=== PATIENT | female | born 1940 | race Caucasian/White ===

== ENCOUNTER 2016-08-30 20:04 | Inpatient (IN) | payer MEDICARE, MEDICAID ==
[~2016-08-30] VITALS: Ht 154.9 cm; Wt 65.8 kg
[2016-08-30 20:55] LABS: MEAN CORPUSCULAR HEMOGLOBIN 29.1 PG (27.0-31.0); MEAN CORPUSCULAR HGB CONC 33.1 G/DL (32.0-36.0); MEAN CORPUSCULAR VOLUME 88 FL (80-99); MEAN PLATELET VOLUME 6.1 FL (6.5-10.1); PLATELET COUNT 221 K/UL (150-450); RED BLOOD COUNT 4.88 M/UL (4.20-5.40); RED CELL DISTRIBUTION WIDTH 11.8 % (11.6-14.8); WHITE BLOOD COUNT 9.1 K/UL (4.8-10.8)
[2016-08-30 21:11] LABS: TROPONIN I < 0.30 ng/mL (<=0.30)
[2016-08-30 21:12] LABS: ALANINE AMINOTRANSFERASE 20 U/L (3-33); ALBUMIN/GLOBULIN RATIO 1.5 (1.0-2.7); ANION GAP 17 (5-15); ASPARTATE AMINO TRANSFERASE 21 U/L (5-40); CALCIUM 10.1 mg/dL (8.6-10.2); CARBON DIOXIDE 23 mEQ/L (20-30); CHLORIDE 98 mEQ/L (98-107); HEMOLYSIS 15; POTASSIUM 4.2 mEQ/L (3.4-4.9); SODIUM 138 mEQ/L (135-145); TOTAL PROTEIN 7.5 g/dL (6.6-8.7)
[2016-08-30 21:17] VITALS: BP 108/67
[2016-08-30 21:22] LABS: CKMB < 1.5 ng/mL (< 3.8)
[2016-08-30] MEDS ORDERED: Zosyn 4.5gm inj ONE (21:23)
[2016-08-30] MEDS ORDERED: Vancomycin 1gm inj IVPB ONE (21:23)
--- NOTE | 2016-08-30 21:39 | Emergency Room Report ---
History of Present Illness General Chief Complaint: Fever Source: Patient Present Illness HPI 76 YO F with 5 days fever/chills, non productive cough, nausea with eating. Denies chest pain, SOB, abd pain, vomiting, diarrhea, sick contacts. Previous smoker. Denies known asthma, COPD. Allergies: Coded Allergies: ACETAMINOPHEN (Unverified Allergy, Unknown, 08/30/16) CODEINE (Unverified Allergy, Unknown, 08/30/16) HYDROCODONE (Unverified Allergy, Unknown, 08/30/16) PENICILLINS (Unverified Allergy, Unknown, 08/30/16) Patient History Past Medical History: HTN Past Surgical History: none Pertinent Family History: none Social History: Reports: smoking Now: No Immunizations: UTD Reviewed Nursing Documentation: PMH: Agreed, PSxH: Agreed Nursing Documentation-PMH Past Medical History: No History, Except For Hx Hypertension: Yes Review of Systems All Other Systems: negative except mentioned in HPI Physical Exam Vital Signs Date Time Temp Pulse Resp B/P Pulse Ox O2 Delivery O2 Flow Rate FiO2 08/30/16 20:04 100.6 89 20 105/67 94 Room Air Sp02 EP Interpretation: reviewed, normal General Appearance: normal inspection, well appearing, no apparent distress, alert, GCS 15, non-toxic Head: normocephalic, atraumatic Eyes: bilateral eye EOMI, bilateral eye PERRL ENT: normal ENT inspection, hearing grossly normal, normal voice Neck: normal inspection, full range of motion, supple, no bony tend Respiratory: normal inspection, normal breath sounds, no respiratory distress, no retraction, no wheezing, crackles Cardiovascular #1: regular rate, rhythm, no edema Gastrointestinal: normal inspection, normal bowel sounds, non tender, soft, no guarding, no hernia Musculoskeletal: normal inspection, back normal, normal range of motion, Rajesh' s Sign negative Neurologic: normal inspection, alert, oriented x3, responsive, service clerk 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 I attest that this information is true, accurate and complete to the best of my knowledge. I understand that any falsification, omission, or concealment of material fact may subject me to administrative, civil, or criminal liability. This patient warrants hospital admission for extreme of age and has a condition that cannot be treated as outpatient. Diagnostic Impression: Primary Impression: Fever Qualified Codes: R50.9 - Fever, unspecified Additional Impression: Cough ER Course 76 YO F with fever/chills and cough. VS here normal. Afebrile. DDx include sepsis, PNA, urosepsis, bronchitis Labs: No leuks. H&H stable. Tx empirically for PNA with vanc/zosyn Afebrile here and Allergy to Tylenol so was not given Endorsed to Dr Lu at 937pm EKG Diagnostic Results Rate: normal Rhythm: NSR ST Segments: no acute changes ASA given to the pt in ED: No Rhythm Strip Diag. Results EP Interpretation: yes Rate: 85 Rhythm: NSR, no PVC's, no ectopy Chest X-Ray Diagnostic Results EP Interpretation: Yes Findings: no consolidation, no effusion, no pneumothorax, no acute cardiopulmonary disease Number of Views: 1 Reevaluation Time: 21:36 Last Vital Signs Date Time Temp Pulse Resp B/P Pulse Ox O2 Delivery O2 Flow Rate FiO2 08/30/16 21:17 99.6 82 28 108/67 94 Room Air Status: improved Disposition: ADMITTED INPATIENT Condition: Serious Referrals: ZION LU (PCP) BRIDGET SANTOYO M.D. Aug 30, 2016 21:39
[2016-08-30 21:40] LABS: LYMPHOCYTES % (MANUAL) 7 % (20-45); NEUTROPHILS % (MANUAL) 88 % (45-75); TOTAL CELLS COUNTED 100
[2016-08-30 21:41] LABS: BAND NEUTROPHILS % (MANUAL) 0 % (0-8); BASOPHILS % (MANUAL) 0 % (0-2); EOSINOPHILS % (MANUAL) 0 % (0-3); PLATELET ESTIMATE ADEQUATE; PLATELET MORPHOLOGY NORMAL
[2016-08-30] MEDS ORDERED: Milk of Magnesia 30ml Ud ORAL PRN (21:45)
[2016-08-30] MEDS ORDERED: Zolpidem 5mg tab ORAL PRN (21:45)
[2016-08-30 21:55] LABS: APPEARANCE,URINE CLEAR; KETONES,URINE NEGATIVE (NEGATIVE); LEUKOCYTE ESTERASE ,URINE 2+ (NEGATIVE); NITRITE,URINE NEGATIVE (NEGATIVE); PH,URINE 5 (4.5-8.0); PROTEIN,URINE NEGATIVE (NEGATIVE); UROBILINOGEN,URINE NORMAL MG/DL (0.0-1.0)
[2016-08-30 21:59] LABS: BACTERIA,URINE FEW /HPF; RBC,URINE 0-2 /HPF (0 - 2); SQUAMOUS EPITHELIAL CELL,UR FEW /LPF (NONE/OCC)
[2016-08-30] MEDS ORDERED: LEVOTHYROXINE125 MCG ORAL (22:17)
[2016-08-30] MEDS ORDERED: NORVASC10 MG ORAL (22:17)
[2016-08-30] MEDS ORDERED: KLONOPIN0.5 MG ORAL (22:17)
[2016-08-30] MEDS ORDERED: CELEXA20 MG ORAL (22:17)
[2016-08-30] MEDS ORDERED: TRAZODONE HCL150 MG ORAL (22:17)
[2016-08-30] MEDS ORDERED: PROPRANOLOL HCL20 MG ORAL (22:17)
[2016-08-30 22:47] VITALS: BP 143/102
[2016-08-31] VITALS (7 sets, daily range): BP systolic 102–135; BP diastolic 60–80
[2016-08-31] MEDS: traMADol 50mg tab ORAL PRN ×2 (01:56→18:24)
[2016-08-31] MEDS ORDERED: Zosyn 4.5gm inj ONE (03:25)
[2016-08-31] MEDS ORDERED: cefTRIAXone 1 GM in D5W 50 ML IVPB SCH (05:00)
[2016-08-31] MEDS: Azithromycin 250mg tab ORAL SCH (08:43)
[2016-08-31] MEDS: Heparin 5000 units/ml inj SUBQ SCH ×2 (08:49→21:29)
--- NOTE | 2016-08-31 10:16 | Diagnostic Imaging Report ---
Indication: Chest pain Technique: One view of the chest Comparison: none Findings: Lungs and pleural spaces are clear. There is mild central bronchial wall thickening. The heart size is normal Impression: No acute process This agrees with the preliminary interpretation provided by the emergency room physician
[2016-08-31] MEDS ORDERED: PROTONIX40 MG ORAL (10:17)
[2016-08-31] MEDS ORDERED: POLYETHYLENE GL17 GM ORAL (10:17)
[2016-08-31] MEDS ORDERED: ARIPIPRAZOLE10 MG PO (10:17)
[2016-08-31] MEDS ORDERED: GEMFIBROZIL600 MG ORAL (10:17)
[2016-08-31] MEDS ORDERED: HYDROXYZINE HCL10 M1 PO (10:17)
[2016-08-31] MEDS ORDERED: PROMETHAZINE-D118 ML ORAL (10:17)
[2016-08-31] MEDS ORDERED: Miralax 17gm pkt ORAL PRN (10:30)
[2016-08-31] MEDS ORDERED: HydrOXYzine 25mg tab ORAL PRN (10:30)
[2016-08-31] MEDS: ARIPiprazole 10mg tab ORAL SCH (10:53)
--- NOTE | 2016-08-31 11:08 | History and Physical Report ---
DATE OF ADMISSION: 08/30/2016 CHIEF COMPLAINT AND REASON FOR HOSPITALIZATION: The patient is a 76-year-old lady with the fever of 102 or higher and productive cough. HISTORY OF PRESENT ILLNESS: The patient has been coughing for about two weeks and presents with cough and fever, possible pneumonia. She has a history of chronic arthritis, walks with a walker, chronic back pain. MEDICATIONS: At her facility include levothyroxine, propranolol, Protonix, Norvasc, gemfibrozil, tramadol, Tylenol, milk of magnesia, Celexa, clonazepam, and aripiprazole, Atarax, and trazodone. ALLERGIES: Penicillin, codeine, and Vicodin. PAST SURGICAL HISTORY: Lumbar spine. HABITS: She is a nondrinker and nonsmoker. No illicit drugs. SOCIAL HISTORY: She is single. Lives in assisted-living facility. SYSTEM REVIEW: HEAD EYES, EARS, NOSE, AND THROAT: Edentulous. Vision and hearing is good. ENDOCRINE: Obesity. No diabetes or thyroid disease. PULMONARY: No history of long-term asthma or TB. CARDIAC: No angina, MS, or palpitations. GASTROINTESTINAL: No gastrointestinal bleeding or ulcers. She has occasional gastritis. GENITOURINARY: No dysuria, hematuria, or kidney stones. NEUROLOGIC: No CVA, syncope, or seizures. PSYCHIATRIC: History of anxiety disorder, although history of hypertension and hypothyroidism correction as above. PHYSICAL EXAMINATION: GENERAL: The patient is alert lady, in no acute distress. She has a dry cough. VITAL SIGNS: Temperature 98.8 degrees, pulse 80, respirations 18, blood pressure 102/64, pulse oximetry is 91% on room air. HEENT: She is edentulous. Oral mucosa is dry. Sclerae nonicteric. Ocular motions intact in all directions. NECK: No adenopathy. LUNGS: Clear. She has a harsh cough. HEART: Regular rhythm. No murmur. ABDOMEN: Soft. No organomegaly or masses. EXTREMITIES: No edema, cyanosis, or clubbing. changes in the hands and knees. NEUROLOGIC: She is alert and oriented. Cranial nerves are intact. No tremors. PERTINENT LABORATORIES: White count 9.1 and hemoglobin 14.2. Electrolytes normal. Lactic acid 1.5. Chest x-ray full report pending. UA shows 2 to 4 white cells per high-power field. IMPRESSION: 1. Community-acquired pneumonia/bronchitis. 2. influenza. 3. Osteoarthritis. 4. Bipolar. 5. Hypothyroidism. 6. History of gastritis. PLAN: The patient will be placed on treatment for community-acquired pneumonia. We will give her comfort measures. Wait for the cultures to check for reimplant and make further assessment and treatment plans pending these results. Ignacio Worrell M.D. DR: DEANNA JOB#: [id number] CC:
[2016-08-31] MEDS: Influenza Virus Vaccine 0.5ml IM ONE ×2 (15:57→17:52)
[2016-08-31] MEDS: Promethazine/DM 6.25mg/5ml ORAL PRN (19:24)
[2016-08-31] MEDS ORDERED: Influenza Virus Vaccine 0.5ml IM ONE (21:00)
[2016-08-31] MEDS: LORazepam 1mg tab ORAL PRN (21:24)
[2016-09-01] VITALS: BP 124/71
[2016-09-01] MEDS: Promethazine/DM 6.25mg/5ml ORAL PRN ×2 (03:56→09:33)
[2016-09-01 04:00] VITALS: BP 136/64
[2016-09-01] MEDS: traMADol 50mg tab ORAL PRN ×2 (05:24→21:36)
[2016-09-01 05:25] VITALS: BP 131/78
[2016-09-01 08:34] VITALS: BP 135/75
[2016-09-01] MEDS: Azithromycin 250mg tab ORAL SCH (09:31)
[2016-09-01] MEDS: ARIPiprazole 10mg tab ORAL SCH (09:32)
[2016-09-01] MEDS: Heparin 5000 units/ml inj SUBQ SCH ×2 (09:44→20:07)
--- NOTE | 2016-09-01 09:50 | General Progress Note ---
Assessment/Plan Problem List: (1) Fever ICD Codes: R50.9 - Fever, unspecified SNOMED: 867403849 Qualifiers: Qualified Codes: R50.9 - Fever, unspecified (2) Cough ICD Codes: R05 - Cough SNOMED: 91253483 (3) Pneumonia ICD Codes: J18.9 - Pneumonia, unspecified organism SNOMED: 426596130 Assessment/Plan still cough, sat 90 on ra, not clear if really allergic to pcn, rx clinda, levaquin zithromax repeat cxr Subjective HEENT: Reports: no symptoms Cardiovascular: Reports: no symptoms Gastrointestinal/Abdominal: Reports: nausea Genitourinary: Reports: no symptoms Neurologic/Psychiatric: Reports: no symptoms Endocrine: Reports: no symptoms Hematologic/Lymphatic: Reports: no symptoms Allergies: Coded Allergies: CODEINE (Unverified Allergy, Unknown, 08/30/16) HYDROCODONE (Unverified Allergy, Unknown, 08/30/16) PENICILLINS (Unverified Allergy, Unknown, 08/30/16) Objective Last 24 Hour Vital Signs Date Time Temp Pulse Resp B/P Pulse Ox O2 Delivery O2 Flow Rate FiO2 09/01/16 08:34 102.0 118 20 135/75 90 Room Air 09/01/16 06:36 100.0 09/01/16 05:25 100.0 115 20 131/78 Room Air 09/01/16 05:08 100.0 09/01/16 04:00 100.9 108 18 136/64 93 Room Air 09/01/16 00:58 99.1 09/01/16 00:00 101.5 113 19 124/71 92 Room Air 08/31/16 22:56 101.0 08/31/16 21:30 100.0 102 20 135/74 93 Room Air 08/31/16 20:10 102.2 08/31/16 20:00 102.4 08/31/16 20:00 100.2 104 19 123/62 91 Room Air 08/31/16 19:23 99.0 08/31/16 16:00 99.0 98 20 130/80 95 Room Air 08/31/16 14:08 98.1 82 18 112/66 93 Room Air 08/31/16 12:07 99.7 82 18 112/66 93 Room Air Intake and Output 08/31/16 09/01/16 19:00 07:00 Intake Total 440 ml 240 ml Balance 440 ml 240 ml Intake Oral 240 ml 240 ml IV Total 200 ml # Voids 1 4 # Bowel Movements 1 Height (Feet): 5 Height (Inches): 1.00 Weight (Pounds): 145 General Appearance: obese EENT: normal ENT inspection Neck: normal alignment Cardiovascular: normal rate, regular rhythm Respiratory/Chest: rhonchi - bilaterally Abdomen: soft, no organomegaly Edema: other - no edema 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
[2016-09-01] MEDS: Albuterol ud Inhalation HHN SCH ×4 (11:22→23:28)
[2016-09-01] MEDS: Clindamycin 600mg 50 ML IV SCH ×2 (14:15→20:04)
[2016-09-01] MEDS ORDERED: Tubing IV Secondary IV ONE (14:40)
[2016-09-01] MEDS ORDERED: NS 275ml ONE (14:40)
[2016-09-01 16:00] VITALS: BP 119/70
[2016-09-01 20:00] VITALS: BP 130/85
[2016-09-01] MEDS: Guaifenesin/DM 10ml syrup ORAL PRN (20:04)
[2016-09-01] MEDS: LORazepam 1mg tab ORAL PRN (20:07)
[2016-09-02] VITALS: BP 142/74
[2016-09-02] MEDS: Albuterol ud Inhalation HHN SCH ×6 (03:25→23:20)
[2016-09-02] MEDS: Clindamycin 600mg 50 ML IV SCH ×2 (05:27→13:08)
[2016-09-02 08:00] VITALS: BP 121/88
[2016-09-02] MEDS: Azithromycin 250mg tab ORAL SCH (08:22)
[2016-09-02] MEDS: ARIPiprazole 10mg tab ORAL SCH (08:22)
[2016-09-02] MEDS: Heparin 5000 units/ml inj SUBQ SCH ×2 (08:27→20:17)
[2016-09-02 09:08] LABS: ALANINE AMINOTRANSFERASE 24 U/L (3-33); ALBUMIN/GLOBULIN RATIO 1.3 (1.0-2.7); ANION GAP 17 (5-15); ASPARTATE AMINO TRANSFERASE 44 U/L (5-40); CALCIUM 9.6 mg/dL (8.6-10.2); CARBON DIOXIDE 22 mEQ/L (20-30); CHLORIDE 100 mEQ/L (98-107); HEMOLYSIS 18; POTASSIUM 4.1 mEQ/L (3.4-4.9); SODIUM 139 mEQ/L (135-145); TOTAL PROTEIN 6.9 g/dL (6.6-8.7)
[2016-09-02 11:52] VITALS: BP 126/75
[2016-09-02] MEDS: LORazepam 1mg tab ORAL PRN ×2 (13:08→21:57)
[2016-09-02] MEDS: Guaifenesin/DM 10ml syrup ORAL PRN (15:44)
[2016-09-02 15:48] VITALS: BP 126/86
--- NOTE | 2016-09-02 17:29 | General Progress Note ---
Assessment/Plan Problem List: (1) Fever ICD Codes: R50.9 - Fever, unspecified SNOMED: 984854383 Qualifiers: Qualified Codes: R50.9 - Fever, unspecified (2) Cough ICD Codes: R05 - Cough SNOMED: 65654436 (3) Pneumonia ICD Codes: J18.9 - Pneumonia, unspecified organism SNOMED: 313249181 (4) Nausea & vomiting ICD Codes: R11.2 - Nausea with vomiting, unspecified SNOMED: 75334532 (5) Bronchitis with asthma, acute ICD Codes: J20.9 - Acute bronchitis, unspecified; J45.909 - Unspecified asthma , uncomplicated SNOMED: 468435136 Assessment/Plan still cough, not clear if really allergic to pcn, rx vomiting will stop clinda, zithromax, continue levaquin, short course steroids repeat cxr--reviewed Subjective Constitutional: Reports: weakness HEENT: Reports: no symptoms Cardiovascular: Reports: no symptoms Respiratory: Reports: cough, shortness of breath Gastrointestinal/Abdominal: Reports: poor appetite Genitourinary: Reports: incontinence Neurologic/Psychiatric: Reports: no symptoms Endocrine: Reports: no symptoms Hematologic/Lymphatic: Reports: no symptoms Allergies: Coded Allergies: CODEINE (Unverified Allergy, Unknown, 08/30/16) HYDROCODONE (Unverified Allergy, Unknown, 08/30/16) PENICILLINS (Unverified Allergy, Unknown, 08/30/16) Objective Last 24 Hour Vital Signs Date Time Temp Pulse Resp B/P Pulse Ox O2 Delivery O2 Flow Rate FiO2 09/02/16 15:48 98.2 100 22 126/86 94 Room Air 09/02/16 15:38 97 16 98 Nasal Cannula 2.0 09/02/16 15:38 91 16 96 Nasal Cannula 2.0 28 09/02/16 11:52 99.0 98 18 126/75 97 Room Air 09/02/16 11:43 92 16 96 Nasal Cannula 2.0 09/02/16 11:43 96 16 98 Nasal Cannula 2.0 28 09/02/16 08:11 93 16 96 Nasal Cannula 3.0 32 09/02/16 08:11 Nasal Cannula 3.0 32 09/02/16 08:11 90 16 96 Nasal Cannula 3.0 32 09/02/16 08:11 96 Nasal Cannula 3.0 32 09/02/16 08:00 98.1 97 20 121/88 95 Room Air 09/02/16 03:34 106 20 98 Nasal Cannula 2.0 28 09/02/16 03:25 106 22 93 Nasal Cannula 2.0 28 09/02/16 00:00 97.7 108 20 142/74 96 Nasal Cannula 3.0 09/01/16 23:45 120 20 98 Nasal Cannula 2.0 28 09/01/16 23:39 98 18 95 Nasal Cannula 2.0 28 09/01/16 22:35 98.2 09/01/16 20:00 98.2 102 22 130/85 96 Nasal Cannula 2.0 09/01/16 19:10 93 18 97 Nasal Cannula 2.0 28 09/01/16 19:01 Nasal Cannula 2.0 28 09/01/16 19:01 96 Nasal Cannula 2.0 28 09/01/16 19:00 93 18 96 Nasal Cannula 2.0 28 Intake and Output 09/01/16 09/02/16 19:00 07:00 Intake Total 480 ml 460 ml Balance 480 ml 460 ml Intake Oral 480 ml 360 ml IV Total 100 ml # Voids 3 2 # Bowel Movements 1 1 Laboratory Tests 09/02/16 08:30: Sodium Level 139, Potassium Level 4.1, Chloride Level 100, Carbon Dioxide Level 22, Anion Gap 17H, Blood Urea Nitrogen 17, Creatinine 1.0H, Estimat Glomerular Filtration Rate , Glucose Level 128H, Calcium Level 9.6, Total Bilirubin 0.3, Aspartate Amino Transf (AST/SGOT) 44H, Alanine Aminotransferase (ALT/SGPT) 24, Alkaline Phosphatase 113H, Total Protein 6.9, Albumin 4.0, Globulin 2.9, Albumin /Globulin Ratio 1.3, Carcinoembryonic Antigen 1.6 Height (Feet): 5 Height (Inches): 1.00 Weight (Pounds): 145 General Appearance: mild distress, obese EENT: PERRL/EOMI Neck: supple Cardiovascular: normal rate, regular rhythm Respiratory/Chest: rhonchi - bilaterally Abdomen: normal bowel sounds, non tender, soft Edema: no edema noted Arm (L), no edema noted Arm (R), no edema noted Leg (L), no edema noted Leg (R), no edema noted Pedal (L), no edema noted Pedal (R), no edema noted 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
[2016-09-02] MEDS: Solu-MEDROL 40mg Inj IVP SCH (20:11)
[2016-09-02] MEDS: D5 1/2NS w/KCl 20mEq 1,000 ML IV SCH (20:18)
[2016-09-03] VITALS (7 sets, daily range): BP systolic 112–145; BP diastolic 64–81
[2016-09-03] MEDS: Albuterol ud Inhalation HHN SCH ×6 (02:56→23:26)
[2016-09-03] MEDS: LORazepam 1mg tab ORAL PRN ×2 (05:22→15:42)
[2016-09-03 06:24] LABS: MEAN CORPUSCULAR HEMOGLOBIN 29.1 PG (27.0-31.0); MEAN CORPUSCULAR HGB CONC 33.2 G/DL (32.0-36.0); MEAN CORPUSCULAR VOLUME 88 FL (80-99); MEAN PLATELET VOLUME 6.7 FL (6.5-10.1); PLATELET COUNT 216 K/UL (150-450); RED CELL DISTRIBUTION WIDTH 11.5 % (11.6-14.8); WHITE BLOOD COUNT 4.4 K/UL (4.8-10.8)
[2016-09-03 07:09] LABS: ALANINE AMINOTRANSFERASE 26 U/L (3-33); ALBUMIN/GLOBULIN RATIO 1.1 (1.0-2.7); ANION GAP 20 (5-15); ASPARTATE AMINO TRANSFERASE 40 U/L (5-40); CALCIUM 10.3 mg/dL (8.6-10.2); CARBON DIOXIDE 23 mEQ/L (20-30); CHLORIDE 96 mEQ/L (98-107); HEMOLYSIS 1; POTASSIUM 3.5 mEQ/L (3.4-4.9); SODIUM 139 mEQ/L (135-145); TOTAL PROTEIN 7.4 g/dL (6.6-8.7)
[2016-09-03] MEDS: D5 1/2NS w/KCl 20mEq 1,000 ML IV SCH (08:26)
[2016-09-03] MEDS: ARIPiprazole 10mg tab ORAL SCH ×2 (08:27→21:07)
[2016-09-03] MEDS: Solu-MEDROL 40mg Inj IVP SCH ×2 (08:27→21:06)
[2016-09-03] MEDS: Heparin 5000 units/ml inj SUBQ SCH ×2 (08:28→21:06)
[2016-09-03] MEDS: Guaifenesin/DM 10ml syrup ORAL PRN ×3 (09:31→21:46)
[2016-09-03 10:05] LABS: BAND NEUTROPHILS % (MANUAL) 0 % (0-8); BASOPHILS % (MANUAL) 0 % (0-2); EOSINOPHILS % (MANUAL) 0 % (0-3); LYMPHOCYTES % (MANUAL) 10 % (20-45); NEUTROPHILS % (MANUAL) 86 % (45-75); PLATELET ESTIMATE ADEQUATE; PLATELET MORPHOLOGY NORMAL; TOTAL CELLS COUNTED 100
[2016-09-03] MEDS ORDERED: Tubing IV Secondary IV ONE (17:30)
--- NOTE | 2016-09-03 18:33 | General Progress Note ---
Assessment/Plan Problem List: (1) Fever ICD Codes: R50.9 - Fever, unspecified SNOMED: 002484467 Qualifiers: Qualified Codes: R50.9 - Fever, unspecified (2) Cough ICD Codes: R05 - Cough SNOMED: 24775433 (3) Pneumonia ICD Codes: J18.9 - Pneumonia, unspecified organism SNOMED: 398139355 (4) Nausea & vomiting ICD Codes: R11.2 - Nausea with vomiting, unspecified SNOMED: 39786538 (5) Bronchitis with asthma, acute ICD Codes: J20.9 - Acute bronchitis, unspecified; J45.909 - Unspecified asthma , uncomplicated SNOMED: 123045873 (6) Schizophrenia ICD Codes: F20.9 - Schizophrenia, unspecified SNOMED: 67983459 Assessment/Plan still cough, not clear if really allergic to pcn, rx vomiting will stop clinda, zithromax, complete levaquin, short course steroids repeat cxr--reviewed, mobilize, video swallow, psych meds Subjective Constitutional: Reports: weakness HEENT: Reports: no symptoms Respiratory: Reports: cough Gastrointestinal/Abdominal: Reports: diarrhea Neurologic/Psychiatric: Reports: other - + hallucinations, weakness Endocrine: Reports: no symptoms Hematologic/Lymphatic: Reports: no symptoms Allergies: Coded Allergies: CODEINE (Unverified Allergy, Unknown, 08/30/16) HYDROCODONE (Unverified Allergy, Unknown, 08/30/16) PENICILLINS (Unverified Allergy, Unknown, 08/30/16) Objective Last 24 Hour Vital Signs Date Time Temp Pulse Resp B/P Pulse Ox O2 Delivery O2 Flow Rate FiO2 09/03/16 16:00 98.1 118 24 145/72 94 Room Air 09/03/16 15:13 102 20 99 Nasal Cannula 2.0 28 09/03/16 15:02 101 20 96 Nasal Cannula 2.0 28 09/03/16 12:00 99.0 122 20 139/81 99 Nasal Cannula 2.0 09/03/16 11:29 112 20 99 Nasal Cannula 2.0 28 09/03/16 11:18 109 20 96 Nasal Cannula 2.0 28 09/03/16 08:42 98.6 124 20 112/67 93 Nasal Cannula 2.0 09/03/16 07:56 112 20 99 Nasal Cannula 2.0 28 09/03/16 07:46 111 20 96 Nasal Cannula 2.0 28 09/03/16 07:46 Nasal Cannula 2.0 28 09/03/16 07:46 96 Nasal Cannula 2.0 28 09/03/16 04:59 97.1 20 136/64 94 Room Air 09/03/16 03:02 88 16 100 Nasal Cannula 2.0 28 09/03/16 02:56 89 18 95 Nasal Cannula 3.0 32 09/03/16 00:10 98.2 115 20 132/70 95 Nasal Cannula 2.0 09/02/16 23:31 95 16 99 Nasal Cannula 2.0 28 09/02/16 23:20 95 17 96 Nasal Cannula 3.0 32 09/02/16 19:41 Nasal Cannula 3.0 32 09/02/16 19:41 110 16 99 Nasal Cannula 3.0 32 09/02/16 19:40 99 Nasal Cannula 3.0 32 09/02/16 19:30 112 16 99 Nasal Cannula 2.0 28 Intake and Output 09/02/16 09/03/16 18:59 06:59 Intake Total 560 ml 1030 ml Balance 560 ml 1030 ml Intake Oral 360 ml 355 ml IV Total 200 ml 675 ml # Voids 3 5 # Bowel Movements 5 2 Laboratory Tests 09/03/16 04:55: White Blood Count 4.4L, Red Blood Count 4.80, Hemoglobin 14.0, Hematocrit 42.1, Mean Corpuscular Volume 88, Mean Corpuscular Hemoglobin 29.1, Mean Corpuscular Hemoglobin Concent 33.2, Red Cell Distribution Width 11.5L, Platelet Count 216, Mean Platelet Volume 6.7, Neutrophils (%) (Auto) , Lymphocytes (%) (Auto) , Monocytes (%) (Auto) , Eosinophils (%) (Auto) , Basophils (%) (Auto) , Differential Total Cells Counted 100, Neutrophils % (Manual) 86H, Lymphocytes % (Manual) 10L, Monocytes % (Manual) 4, Eosinophils % (Manual) 0, Basophils % ( Manual) 0, Band Neutrophils 0, Platelet Estimate Adequate, Platelet Morphology Normal, Red Blood Cell Morphology Normal, Sodium Level 139, Potassium Level 3.5 , Chloride Level 96L, Carbon Dioxide Level 23, Anion Gap 20H, Blood Urea Nitrogen 19, Creatinine 1.0H, Estimat Glomerular Filtration Rate , Glucose Level 259#H, Calcium Level 10.3H, Total Bilirubin 0.2, Aspartate Amino Transf ( AST/SGOT) 40, Alanine Aminotransferase (ALT/SGPT) 26, Alkaline Phosphatase 103, Total Protein 7.4, Albumin 3.9, Globulin 3.5, Albumin/Globulin Ratio 1.1 Height (Feet): 5 Height (Inches): 1.00 Weight (Pounds): 145 General Appearance: no apparent distress, obese EENT: normal ENT inspection Neck: normal alignment Cardiovascular: normal rate, regular rhythm Respiratory/Chest: rhonchi - bilaterally Abdomen: non tender Extremities: non-tender 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
[2016-09-03] MEDS: Nystatin Powder 100,000 units/gm 15gm TOPIC SCH (21:06)
[2016-09-04] MEDS: Guaifenesin/DM 10ml syrup ORAL PRN ×2 (03:04→16:38)
[2016-09-04] MEDS: Albuterol ud Inhalation HHN SCH ×6 (03:15→23:15)
[2016-09-04 04:00] VITALS: BP 131/61
--- NOTE | 2016-09-04 08:36 | Cardiology Report ---
APPROVED REPORT EKG Measurement Heart [id number] [id number] Normal sinus rhythm Normal ECG
[2016-09-04 08:37] VITALS: BP 131/79
[2016-09-04] MEDS: Solu-MEDROL 40mg Inj IVP SCH ×2 (09:00→19:57)
[2016-09-04] MEDS: ARIPiprazole 10mg tab ORAL SCH ×2 (09:15→19:57)
[2016-09-04] MEDS: Nystatin Powder 100,000 units/gm 15gm TOPIC SCH ×3 (09:15→16:38)
[2016-09-04] MEDS: Heparin 5000 units/ml inj SUBQ SCH ×2 (09:21→20:00)
[2016-09-04 12:42] VITALS: BP 133/81
--- NOTE | 2016-09-04 14:35 | General Progress Note ---
Assessment/Plan Problem List: (1) Fever ICD Codes: R50.9 - Fever, unspecified SNOMED: 170966162 Qualifiers: Qualified Codes: R50.9 - Fever, unspecified (2) Cough ICD Codes: R05 - Cough SNOMED: 98541240 (3) Pneumonia ICD Codes: J18.9 - Pneumonia, unspecified organism SNOMED: 511321233 (4) Nausea & vomiting ICD Codes: R11.2 - Nausea with vomiting, unspecified SNOMED: 64382679 (5) Bronchitis with asthma, acute ICD Codes: J20.9 - Acute bronchitis, unspecified; J45.909 - Unspecified asthma , uncomplicated SNOMED: 200248562 (6) Schizophrenia ICD Codes: F20.9 - Schizophrenia, unspecified SNOMED: 24986469 Assessment/Plan still cough, not clear if really allergic to pcn, rx vomiting will stop clinda, zithromax, complete levaquin, short course steroids repeat cxr--reviewed, mobilize, video swallow, psych meds adjusted, will need snf Subjective Constitutional: Reports: weakness HEENT: Reports: no symptoms Respiratory: Reports: SOB with excertion, cough Gastrointestinal/Abdominal: Reports: nausea Genitourinary: Reports: incontinence Neurologic/Psychiatric: Reports: weakness Endocrine: Reports: no symptoms Allergies: Coded Allergies: CODEINE (Unverified Allergy, Unknown, 08/30/16) HYDROCODONE (Unverified Allergy, Unknown, 08/30/16) LACTOSE (Verified Allergy, Unknown, diarrhea, 09/03/16) PENICILLINS (Unverified Allergy, Unknown, 08/30/16) Objective Last 24 Hour Vital Signs Date Time Temp Pulse Resp B/P Pulse Ox O2 Delivery O2 Flow Rate FiO2 09/04/16 12:42 97.7 102 20 133/81 93 Room Air 09/04/16 11:00 Nasal Cannula 2.0 28 09/04/16 11:00 Nasal Cannula 2.0 28 09/04/16 08:37 98.4 107 20 131/79 93 Room Air 09/04/16 08:20 93 20 98 Nasal Cannula 2.0 28 09/04/16 08:10 95 Nasal Cannula 2.0 28 09/04/16 08:10 92 20 95 Nasal Cannula 2.0 28 09/04/16 08:10 Nasal Cannula 2.0 28 09/04/16 04:00 97.7 98 20 131/61 93 Nasal Cannula 2.0 09/04/16 03:17 88 18 98 Nasal Cannula 2.0 28 09/04/16 03:17 90 20 95 Nasal Cannula 2.0 28 09/03/16 23:49 97.9 98 20 133/70 93 Nasal Cannula 2.0 09/03/16 23:32 89 18 98 Nasal Cannula 2.0 28 09/03/16 23:26 91 20 95 Nasal Cannula 2.0 28 09/03/16 20:00 97.5 102 22 133/72 94 Nasal Cannula 2.0 09/03/16 19:47 101 18 96 Nasal Cannula 2.0 28 09/03/16 19:46 103 20 96 Nasal Cannula 2.0 28 09/03/16 19:42 Nasal Cannula 2.0 28 09/03/16 19:42 95 Nasal Cannula 2.0 28 09/03/16 16:00 98.1 118 24 145/72 94 Room Air 09/03/16 15:13 102 20 99 Nasal Cannula 2.0 28 09/03/16 15:02 101 20 96 Nasal Cannula 2.0 28 Intake and Output 09/03/16 09/04/16 18:59 06:59 Intake Total 270 ml 480 ml Balance 270 ml 480 ml Intake Oral 120 ml 480 ml IV Total 150 ml # Voids 4 # Bowel Movements 5 1 Height (Feet): 5 Height (Inches): 1.00 Weight (Pounds): 145 General Appearance: alert, mild distress EENT: PERRL/EOMI Neck: normal alignment Cardiovascular: normal rate, regular rhythm Respiratory/Chest: rhonchi - bilaterally Abdomen: non tender Edema: no edema noted Arm (L), no edema noted Arm (R), no edema noted Leg (L), no edema noted Leg (R), no edema noted Pedal (L), no edema noted Pedal (R), no edema noted 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
[2016-09-04 16:00] VITALS: BP 128/73
[2016-09-04] MEDS: LORazepam 1mg tab ORAL PRN (19:57)
[2016-09-04] MEDS: traMADol 50mg tab ORAL PRN (19:57)
[2016-09-04 20:00] VITALS: BP 132/73
[2016-09-05] VITALS: BP 122/68
[2016-09-05] MEDS: Albuterol ud Inhalation HHN SCH ×5 (03:33→19:00)
[2016-09-05 04:00] VITALS: BP 112/71
[2016-09-05] MEDS: Solu-MEDROL 40mg Inj IVP SCH (08:03)
[2016-09-05] MEDS: Nystatin Powder 100,000 units/gm 15gm TOPIC SCH ×3 (08:03→16:02)
[2016-09-05] MEDS: ARIPiprazole 10mg tab ORAL SCH (08:04)
[2016-09-05] MEDS: Heparin 5000 units/ml inj SUBQ SCH (08:10)
[2016-09-05 08:32] VITALS: BP 114/69
[2016-09-05] MEDS: Guaifenesin/DM 10ml syrup ORAL PRN ×2 (10:13→16:02)
[2016-09-05 12:00] VITALS: BP 121/77
[2016-09-05] MEDS: LORazepam 1mg tab ORAL PRN (12:47)
[2016-09-05 16:04] VITALS: BP 146/71
[2016-09-05] MEDS ORDERED: PREDNISONE20 M1 PO (16:56)
[2016-09-05] MEDS ORDERED: ABILIFY10 MG ORAL (16:56)
[2016-09-05] MEDS ORDERED: Pneumococcal Vaccine 25mcg/0.5ml IM ONE (18:30)
--- NOTE | 2016-09-06 03:48 | Discharge Summary ---
DATE OF ADMISSION: 08/30/2016 DATE OF DISCHARGE: 09/05/2016 PERTINENT HISTORY: The patient is a 76-year-old lady, admitted with a fever of 102 degrees and productive cough. She has felt very weak and when she coughs, she has had nausea and vomiting. She has history of osteoarthritis, hypothyroidism, gastritis, hypertension, and bipolar. PHYSICAL EXAMINATION: GENERAL: The patient is alert and ill appearing. HEENT: She is edentulous. She is having a harsh cough. Mouth is dry. NECK: No adenopathy. LUNGS: Clear. HEART: Regular rhythm. ABDOMEN: Soft without organomegaly. EXTREMITIES: No edema. There are arthritic changes in the knees. COURSE IN THE HOSPITAL: The patient was admitted with fever, cough, and weakness. She was started on treatment for community-acquired pneumonia. Chest x-ray showed no active disease, but she continued to have fevers. She is given empiric antibiotics, insulin , and Gram stain and blood cultures were all negative. She subsequently had some diarrhea and nausea and antibiotics were discontinued. She was given symptomatic care. She had bronchospasm and was given nebulizer treatments with steroids for acute exacerbation of asthma. With the above treatment, she felt improved and was able to tolerate a diet and because of her declined status, arrangements were made for her to go to a longterm facility for rehabilitation. She did have a video swallow test in view of her problems and no aspiration was noted, but she has risk/trace laryngeal penetration with thin and nectar thick liquids. Pureed diet was recommended by the speech therapy. FINAL DIAGNOSES: 1. Acute asthmatic bronchitis with fever. 2. Nausea and vomiting. 3. Gastritis. 4. Dysphagia. 5. Osteoarthritis. 6. Diarrhea. 7. Nausea and vomiting. 8. Obesity. 9. History of hypothyroidism, on replacement. DISCHARGE DISPOSITION: She is discharged on pureed diet. DISCHARGE MEDICATIONS: Per the discharge medication list. FOLLOWUP: Follow up with Dr. Worrell in the facility. Ignacio Worrell M.D. DR: Nina JOB#: [id number] CC:
--- NOTE | 2016-09-08 10:31 | Diagnostic Imaging Report ---
Indication: INFECT Technique: One view of the chest Comparison: 08/30/2016 Findings: Lungs and pleural spaces remain clear. Heart size is normal. Is incidental finding of calcific tendinosis of the right shoulder Impression: No acute process
--- NOTE | 2016-09-10 15:38 | Diagnostic Imaging Report ---
Indication: Dysphasia Procedure and findings: Real-time fluoroscopic imaging performed in a lateral projection in conjunction with the speech pathologist evaluation. Variable consistencies of barium given per mouth. Findings: Significant abnormalities of both oral and pharyngeal phases of swallowing are demonstrated. Total fluoroscopic time 269 seconds. Laryngeal penetration noted. This was seen uniformly throughout the examination. No aspiration appreciated. Abnormal video swallow. Please refer to speech pathology evaluation for more information.
== END 2016-09-05 19:15 | DRG 202 ==
LOC: ENRESERVDT → ENRESERVTM → EDBD 20:04 → EMR 20:45 → 4W 20:48 → EDBEDREQ 21:14 → 4W 09-03 18:51
DX: J20.9 Acute bronchitis, unspecified (principal); J18.9 Pneumonia, unspecified organism; J45.901 Unspecified asthma with (acute) exacerbation; R13.10 Dysphagia, unspecified; K29.70 Gastritis, unspecified, without bleeding; E03.9 Hypothyroidism, unspecified; M19.90 Unspecified osteoarthritis, unspecified site; F31.9 Bipolar disorder, unspecified; F20.9 Schizophrenia, unspecified; Z23 Encounter for immunization; R11.2 Nausea with vomiting, unspecified; E66.9 Obesity, unspecified; R19.7 Diarrhea, unspecified; Z87.891 Personal history of nicotine dependence; Z88.0 Allergy status to penicillin; Z68.27 Body mass index [BMI] 27.0-27.9, adult
CPT/HCPCS: 36415; 71010; 74230; 80053; 81003; 82378; 82550; 82553; 83605; 84484; 85007; 85025; 86710; 87040; 87070; 87081; 87205; 90732; 92610; 93005; 94640; 94664; 94760; J2405; Q2036; S0077